=== PATIENT | female | born 1990 | race Caucasian/White ===

== ENCOUNTER 2017-10-14 15:39 | Emergency (ER) | payer MEDICAID, OTHER ==
[2017-10-14 15:45] VITALS: BMI 21.4
[2017-10-14 16:28] LABS: HCG,QUALITATIVE URINE POSITIVE (NEGATIVE)
[2017-10-14 16:29] LABS: BASO # 0.1 K/uL (0.0-0.2); BASO % 0.5 % (0.0-2.0); EOS # 0.1 K/uL (0.0-0.7); EOS % 0.7 % (0.0-4.0); HEMOGLOBIN 13.5 g/dL (11.0-16.0); LYMPH # 1.7 K/uL (1.0-4.3); LYMPH % 16.6 % (20.0-40.0); MEAN CELL VOLUME 92.6 fL (81.0-99.0); MEAN CORPUSCULAR HEMOGLOBIN 31.6 pg (27.0-31.0); MEAN CORPUSCULAR HGB CONC 34.1 g/dL (33.0-37.0); MEAN PLATELET VOLUME 9.5 fL (7.2-11.7); MONO # 0.6 K/uL (0.0-0.8); MONO % 5.9 % (0.0-10.0); NEUT # 7.8 K/uL (1.8-7.0); NEUT % 76.3 % (50.0-75.0); RBC 4.28 Mil/uL (3.80-5.20); RED CELL DISTRIBUTION WIDTH 12.4 % (11.5-14.5); WHITE BLOOD COUNT 10.2 K/uL (4.8-10.8)
[2017-10-14 16:31] LABS: URINE BILIRUBIN NEGATIVE (NEGATIVE); URINE BLOOD 1+ (NEGATIVE); URINE CLARITY Clear (Clear); URINE COLOR Straw (YELLOW); URINE GLUCOSE (UA) NORMAL (Normal); URINE LEUKOCYTE ESTERASE NEG Leu/uL (Negative); URINE PROTEIN NEGATIVE (NEGATIVE); URINE UROBILINOGEN NORMAL mg/dL (0.2-1.0)
[2017-10-14 16:37] LABS: INR 1.1; PROTHROMBIN TIME 11.9 SECONDS (9.7-12.2)
--- NOTE | 2017-10-14 16:55 | C.PDOC ---
History Of Present Illness 27 yo female come in for evaluation of vaginal spotting, intermittent lower abdominal cramping developed since early today. Pt admits, LNMP 09/05/17, took test (+). Otherwise ,pt denies hx of ectopic in past, denies fever, chills, headache, dizziness, sore throat, abd. pain, N/V/D, back pain, UTI sx. Ambulate to Ed for evaluation, not in nay apparent distress. Time Seen by Provider: 10/14/17 15:56 Chief Complaint (Nursing): Female Genitourinary History Per: Patient Past Medical History Reviewed: Historical Data, Nursing Documentation, Vital Signs Vital Signs: Last Vital Signs Temp 98.2 F 10/14/17 15:45 Pulse 93 H 10/14/17 15:45 Resp 16 10/14/17 15:45 BP 119/77 10/14/17 15:45 Pulse Ox 99 10/14/17 16:55 - Medical History PMH: No Chronic Diseases Surgical History: (1) Family History: States: No Known Family Hx - Social History Hx Alcohol Use: No Hx Substance Use: No - Immunization History Hx Tetanus Toxoid Vaccination: No Hx Influenza Vaccination: No Hx Pneumococcal Vaccination: No Review Of Systems Except As Marked, All Systems Reviewed And Found Negative. Constitutional: Negative for: Fever, Chills ENT: Negative for: Throat Pain Cardiovascular: Negative for: Chest Pain, Palpitations Respiratory: Negative for: Cough, Shortness of Breath, Wheezing Gastrointestinal: Negative for: Nausea, Vomiting, Abdominal Pain, Diarrhea Genitourinary: Positive for: Vaginal Bleeding Musculoskeletal: Negative for: Neck Pain, Back Pain Neurological: Negative for: Headache, Dizziness Physical Exam - Physical Exam Appears: Well, Non-toxic, No Acute Distress Skin: Normal Color, Warm, Dry, No Rash Head: Normacephalic Eye(s): bilateral: PERRL Nose: No Flaring, No Discharge Oral Mucosa: Moist Throat: No Erythema, No Drooling Neck: Trachea Midline, Supple Cardiovascular: Rhythm Regular, No Murmur, No JVD Respiratory: No Decreased Breath Sounds, No Accessory Muscle Use, No Stridor, No Wheezing Gastrointestinal/Abdominal: Soft, No Tenderness, No Distention, No Guarding Back: No CVA Tenderness Extremity: Normal ROM, No Deformity, No Swelling Neurological/Psych: Oriented x3, Normal Speech ED Course And Treatment - Laboratory Results Result Diagrams: 10/14/17 16:22 Urine POC: Positive O2 Sat by Pulse Oximetry: 99 Pulse Ox Interpretation: Normal - CT Scan/US OB US Other Rad Studies (CT/US): Radiology Report Reviewed CT/US Interpretation: Creator : Zainab Easley MD. Dictator : Zainab Easley MD. Waste Machine Offbearer : Director Of Casework Services : Zainab Easley MD. Approver2 : Report Date : 10/14/2017 17:45:07. My Comment : . Date of service: 2017. PROCEDURE: OB Pelvic Ultrasound. HISTORY: vaginal spotting. COMPARISON: None available. FINDINGS: UTERUS: Single intrauterine gestational sac. Gestational sac diameter measures 0.60 too small to characterize gestational age. Yolk sac and pole are not visualized on the current examination. Niyah-gestational hemorrhage: There is a small subchorionic hemorrhage measuring 1.1 x 0.5 x 0.6 cm. Uterus measures 10.3 x 6.3 x 3.2 cm. There is a 2.4 x 1.8 x 1.9 cm posterior wall intramural fibroid. CERVIX: Long and closed. No cervical abnormality seen. RIGHT OVARY: Measures 3.8 x 2.8 x 2.5 cm. No mass. Normal flow. LEFT OVARY: Measures 3.9 x 2.4 x 2.8 cm. No mass. Normal flow. There is a 2.2 cm corpus luteum cyst. FREE FLUID : None. OTHER FINDINGS: None. IMPRESSION: Single intrauterine gestational sac too small to estimate gestational age. Clinical and imaging follow-up is recommended to assess viability. 1.1 x 0.5 x 0.6 cm subchorionic hemorrhage. Progress Note: On re-evaluation, pt is afebrile, hemodynamicaly stable. NOn- toxic. ABd: benign, (-) guarding, (-) rebound. back: (-) CVA tenderness. Blood work review, appears normal. US review (+) IUP, Single intrauterine gestational sac too small to estimate gestational age, small subchorionic hemorrhage. Beta quant c/w 4-5 wks . Blood type: B positive. Pt has clinical finidngs c/w threatened miscarriage. Pt advised to F/U with OB in 1- 2 days for re-eavl. return to ED if any worsening or new changes. Disposition Counseled Patient/Family Regarding: Studies Performed, Diagnosis, Need For Followup, Rx Given - Disposition [facility] Disposition: HOME/ ROUTINE Disposition Time: 17:52 Condition: STABLE Additional Instructions: "Pelvic rest", avoid sexual activity for 1 week, heavy lifting, etc. Follow up with OB in 1-2 days for re-evaluation, or ED to repeat beta quant return to Ed at any time if any worsening or new changes. Instructions: Threatened Miscarriage Forms: [email or web address] (Setswana) - Clinical Impression Clinical Impression: Threatened
--- NOTE | 2017-10-14 17:46 | US ---
Date of service: 10/14/2017 PROCEDURE: OB Pelvic Ultrasound HISTORY: vaginal spotting COMPARISON: None available. FINDINGS: UTERUS: Single intrauterine gestational sac. Gestational sac diameter measures 0.60 too small to characterize gestational age. Yolk sac and pole are not visualized on the current examination. Niyah-gestational hemorrhage: There is a small subchorionic hemorrhage measuring 1.1 x 0.5 x 0.6 cm. Uterus measures 10.3 x 6.3 x 3.2 cm. There is a 2.4 x 1.8 x 1.9 cm posterior wall intramural fibroid. CERVIX: Long and closed. No cervical abnormality seen. RIGHT OVARY: Measures 3.8 x 2.8 x 2.5 cm. No mass. Normal flow. LEFT OVARY: Measures 3.9 x 2.4 x 2.8 cm. No mass. Normal flow. There is a 2.2 cm corpus luteum cyst. FREE FLUID: None. OTHER FINDINGS: None. IMPRESSION: Single intrauterine gestational sac too small to estimate gestational age. Clinical and imaging follow-up is recommended to assess viability. 1.1 x 0.5 x 0.6 cm subchorionic hemorrhage.
[2017-10-14 18:05] VITALS: BP 95/64; PULSE 83; RESP 17; TEMP 98.9; O2SAT 98
== END 2017-10-14 18:05 | disposition home or self-care (01) ==
LOC: C.ER 15:39
DX: O20.0 Threatened abortion (principal); Z3A.00 Weeks of gestation of pregnancy not specified

== ENCOUNTER 2018-07-27 16:46 | Emergency (ER) | payer MEDICAID | END 2018-07-27 19:25 | disposition left against medical advice (07) | LOC: C.ER 16:46 | CPT/HCPCS: 93005; LWBS0 ==